=== PATIENT | male | born 1975 ===

== ENCOUNTER 2017-07-17 05:39 | Emergency (ER) | payer BC ==
[~2017-07-17] VITALS: Ht 175.3 cm; Wt 64.6 kg
[2017-07-17 05:40] VITALS: BP 124/60; PULSE 75; RESP 18; TEMP 98.2; O2SAT 97
[2017-07-17] MEDS ORDERED: PRED-503 PO (09:39)
[2017-07-17] MEDS ORDERED: BACT800T5 PO (09:39)
[2017-07-17] MEDS ORDERED: DIPH25CA PO (09:39)
--- NOTE | 2017-07-17 09:39 | PD ---
HPI Chief Complaint: Bite or Sting Time Seen by Provider: 09:22 Travel History International Travel<30 days: No Contact w/Intl Traveler<30days: No Traveled to known affect area: No History of Present Illness HPI The patient is a 42-year-old male who presents emergency department for a wasp being on the third digit of the left hand. The patient is right- hand dominant. The sting occurred yesterday over the extensor surface of the middle phalanx. The patient removed the stinger. He noted that the area was swollen and red yesterday, he took Benadryl, and the symptoms improved. However , he awakened this morning and stated that the erythema and swelling had returned. The patient does note Limited ability to flex the third digit secondary to swelling. He does note mild pain and itching. The patient had mild shortness of breath yesterday which has resolved. He denies any difficulty swallowing or wheezing today. Last tetanus shot is unknown. PFSH Past Medical History Medical History: Denies Significant Hx Past Surgical History Narrative Surgical Noncontributory Social History Tobacco Use: No Allergies-Medications (Allergen,Severity, Reaction): Coded Allergies: No Known Allergies (Unverified , 07/17/17) Review of Systems General / Constitutional: No: Fever Respiratory: No: Shortness of Breath Gastrointestinal: No: Nausea, Vomiting Musculoskeletal: Positive: Edema, Pain Skin: Positive Rash, Positive Itching Neurologic: No: Paresthesia, Sensory Disturbance Physical Exam Narrative GENERAL: Awake, alert, very pleasant 42-year-old male who appears his stated age and is in no acute respiratory distress. SKIN: Focused skin assessment warm/dry. Patient has some erythema over the extensor surface of the left hand from the third digit middle phalanx up to the mid left hand. Skin blanches, no obvious petechiae. HEAD: Atraumatic. Normocephalic. MUSCULOSKELETAL: The left hand is swollen over the extensor surface of the third digit and left hand. Positive left radial pulse. Patient is able flex at the MCP, PIP, and DIP, however limited range of motion third digit secondary to edema. NEUROLOGICAL: Awake and alert. No obvious cranial nerve deficits. Motor grossly within normal limits. Normal speech. PSYCHIATRIC: Appropriate mood and affect; insight and judgment normal. Data Data Last Documented VS Vital Signs Date Time Temp Pulse Resp B/P (MAP) Pulse Ox O2 Delivery O2 Flow Rate FiO2 07/17/17 05:40 98.2 75 18 124/60 (81) 97 Room Air Orders Orders Prednisone (Deltasone) (07/17/17 09:45) Sodium Chloride 0.9% Flush (Ns Flush) (07/17/17 09:45) Diphenhydramine (Benadryl) (07/17/17 09:45) Sulfamet-Trimeth Ds 800-160 Mg (Bactrim (07/17/17 09:45) Tetanus/Diphtheria Tox Adult (Tetanus/Di (07/17/17 09:45) MDM Medical Decision Making Medical Screen Exam Complete: Yes Emergency Medical Condition: Yes Medical Record Reviewed: Yes Differential Diagnosis Differential diagnosis includes allergic reaction, angioedema, anaphylaxis, cellulitis, hymenoptera injection. Narrative Course The patient was administered prednisone 61 g orally, Benadryl 25 mg orally, and Bactrim DS by mouth. The patient's tetanus shot was updated. The patient will be placed on prednisone, Bactrim, Benadryl for 5 days. He is advised elevate, ice, and return if symptoms worsen or progress. Diagnosis Primary Impression: Allergic reaction Qualified Codes: T78.40XA - Allergy, unspecified, initial encounter Patient Instructions: General Instructions Additional Instructions: Medications as directed. Follow-up with your primary physician. Return if symptoms worsen or progress. Med/Other Pt SpecificInfo: Prescription(s) given Scripts Sulfamethoxazole-Trimethoprim (Bactrim DS) 800-160 Mg Tab 1 TAB PO BID for Infection for 5 Days, TAB 0 Refills Prov: Narendra Kay MD 07/17/17 Diphenhydramine (Diphenhydramine) 25 Mg Cap 25 MG PO Q6H Y for ALLERGIES, #20 CAP 0 Refills Prov: Narendra Kay MD 07/17/17 Prednisone (Deltasone) 20 Mg Tab 40 MG PO DAILY for 4 Days, TAB 0 Refills Prov: Narendra Kay MD 07/17/17 Disposition: 01 DISCHARGE HOME Condition: Stable Narendra Kay MD Jul 17, 2017 09:39
[2017-07-17] MEDS ORDERED: diphenhydrAMINE HCL 25 MG CAP PO ONE (09:45)
[2017-07-17] MEDS ORDERED: SODIUM CHLORIDE 0.9% FLUSH 10 ML FLUSH IV FLUSH PRN (09:45)
[2017-07-17] MEDS ORDERED: SULFAMETHOXAZOLE-TRIMETHOPRIM DS 800-160 MG TAB PO ONE (09:45)
[2017-07-17] MEDS ORDERED: predniSONE 20 MG TAB PO ONE (09:45)
[2017-07-17] MEDS ORDERED: TETANUS/DIPHTHERIA TOXOID ADULT 0.5 ML VIAL IM ONE (09:45)
== END 2017-07-17 10:20 | disposition home or self-care (01) ==
LOC: PHED 05:39 → PHEFT 10:20
DX: T78.40XA Allergy, unspecified, initial encounter (principal)
CPT/HCPCS: 90471; 90714; 99284; J7512